=== PATIENT | female | born 1955 | race Caucasian/White ===

== ENCOUNTER → 2019-04-30 | Outpatient (CLI) | payer OTHER ==
[~2019-04-30] MED LIST: BIOTIN800 MCG PO; CLONAZEPAM; CO Q-10400 MG PO; FENTANYL CITRATE/PF 100MCG/2 ML INJ ONE; HEPARIN SOD (PORCINE) 1000 UNIT/ML SDV ONE; LASIX; LIDOCAINE HCL 1% LOCAL INJ 20 ML VIAL ONE; MIDAZOLAM HCL 2 MG/2 ML VIAL ONE; MULTI-VITAMIN1 EACH PO; OLANZAPINE5 MG PO; POTASSIUM; PROTONIX; PROZAC PO; REGLAN; SODIUM CHLORIDE 0.9% 250ML 250 ML ONE; SUBOXONE 8 MG-1 EAC2 PO; VIT C PO; VIT D3 PO
[2019-04-30 11:48] LABS: BASOPHILS # (AUTO) 0.1 (0.0-0.1); BASOPHILS % 0.5 % (0.0-1.0); EOSINOPHILS % 0.3 % (0.0-6.0); HEMATOCRIT 31.2 % (34.2-44.1); HEMOGLOBIN 9.9 g/dL (12.0-16.0); LYMPHOCYTES # (AUTO) 3.6 (1.0-3.2); LYMPHOCYTES % 26.9 % (18.0-39.1); MEAN CORPUSCULAR HEMOGLOBIN 25.1 pg (28-32); MEAN CORPUSCULAR HGB CONC 31.7 g/dL (31-35); MONOCYTES # (AUTO) 1.8 (0.2-0.8); MONOCYTES % 13.6 % (4.4-11.3); NEUTROPHILS # (AUTO) 7.7 (2.1-6.9); NEUTROPHILS % 58.3 % (38.7-80.0); PLATELET COUNT 504 x10e3/uL (140-360); RED BLOOD COUNT 3.95 x10e6/uL (3.6-5.1); RED CELL DISTRIBUTION WIDTH 17.2 % (11.7-14.4)
[2019-04-30 12:16] LABS: INR 1.05; PROTHROMBIN TIME 14.3 seconds (11.9-14.5)
[2019-04-30 12:17] LABS: PARTIAL THROMBOPLASTIN TIME 31.3 seconds (23.8-35.5)
[2019-04-30 13:30] VITALS: BP 129/80
--- NOTE | 2019-04-30 13:35 | NUR ---
bedside report received from Uzma SAENZ from IR. Alert oriented and appropriate, PERRLA, respirations even and unlabored to room air. Pulses x4 extremities equal and strong. Cap fill brisk < 3 sec. Skin warm and dry integrity appears intact. IV 20g to right AC area presents healthy w/o s/s of infiltration or complaint. Abdomen soft and supple. pt offered toileting, denies need to urinate or defecate. Personal affects with patient. Family to bedside. Pt and family verbalizes understanding of POC for DC. BP and Pleth monitoring Currently w/o complaint of pain or need. right upper chest w/ new port-a-cath with dressing CDI.IV presents healthy to right AC area. No acute distress or need. - cgf
[2019-04-30 13:45] VITALS: BP 129/78
[2019-04-30 14:00] VITALS: BP 122/84
[2019-04-30 14:15] VITALS: BP 124/88
--- NOTE | 2019-04-30 14:30 | NUR ---
Pt meets DC criteria. right upper chest assessed for s/s of complication and presence of hematoma. General skin warm, dry, no discolor, and pulses present. IV removed from right forearm. Distal tip appears intact. VS WNL. Pt denies pain, sob, or need at this time. Family at bedside. Review of discharge paperwork and follow up instructions. verbalized understanding. Pt to wheelchair and transported to front of hospital. Transferred to private vehicle under own strength w/o incident with DC paperwork in hand. - cgf
--- NOTE | 2019-04-30 16:24 | Diagnostic Imaging Report ---
PROCEDURE: Chest port placement Procedural Personnel Attending physician(s): Emma Darden MD Fellow physician(s): None Resident physician(s): None Advanced practice provider(s): None Pre-procedure diagnosis: Lung cancer Post-procedure diagnosis: Same Indication: Administration of chemotherapy Additional clinical history: None Complications: No immediate complications. IMPRESSION: Insertion of right-sided power-injectable single-lumen tunneled chest port, with catheter tip in the expected location of the cavoatrial junction. Plan: The port may be used immediately. PROCEDURE SUMMARY: - Venous access with ultrasound guidance - Tunneled port insertion under fluoroscopic guidance - Additional procedure(s): None Pre-procedure Consent: Informed consent for the procedure including risks, benefits and alternatives was obtained and time-out was performed prior to the procedure. Preparation (MIPS): The site was prepared and draped using all elements of maximal sterile barrier technique including sterile gloves, sterile gown, cap, mask, large sterile sheet, sterile ultrasound probe cover, hand hygiene and cutaneous antisepsis with 2% chlorhexidine. Medical reason for site preparation exception (MIPS): Not applicable Anesthesia/sedation Level of anesthesia/sedation: Moderate sedation (conscious sedation) Anesthesia/sedation administered by: Independent trained observer under attending supervision with continuous monitoring of the patient?s level of consciousness and physiologic status Total intra-service sedation time (minutes): 30 Access Local anesthesia was administered. The vessel was sonographically evaluated and determined to be patent. Real time ultrasound was used to visualize needle entry into the vessel and a permanent image was stored. Vein accessed: Internal jugular vein Access technique: Micropuncture set with 21 gauge needle Port placement An incision was made at the upper chest, a pocket was created, and the catheter was tunneled subcutaneously to the venous access site and trimmed to appropriate length. The port was inserted into the pocket and the catheter was advanced via a peel-away sheath into the vein under fluoroscopic guidance. The port was not sutured into the pocket. Catheter tip location was fluoroscopically verified and a permanent image was stored. Port placed: [employer] Catheter size (Maltese): 8 Catheter flush: Heparin (100 units/mL), 500u total Closure The access site and incision were closed and sterile dressing(s) were applied. Access site closure technique: Tissue adhesive Incision closure technique: Absorbable suture and tissue adhesive Patient discharged from procedure suite with device accessed: No Contrast Contrast agent: None Radiation Dose Fluoroscopy time (minutes): 0.2 Reference air kerma (mGy): 0.9 Additional Details Additional description of procedure: None Equipment details: None Specimens removed: None Estimated blood loss (mL): Less than 10 Standardized report: [email or web address] Attestation Signer name: Emma Darden MD I attest that I was present for the entire procedure. I reviewed the stored images and agree with the report as written. Signed by: Emma Darden MD on 04/30/2019 4:22 PM
== END ==
LOC: DX 11:10
PROVIDERS: ATTEND Internal Medicine
DX: C34.90 Malignant neoplasm of unspecified part of unspecified bronchus or lung (principal)
CPT/HCPCS: 36415; 36561; 76937; 77001; 85025; 85610; 85730; 99152; J1644; J2001; J2250; J3010; J7050